=== PATIENT | male | born 1995 | race Caucasian/White ===

== ENCOUNTER 2016-12-08 14:55 | Emergency (ER) | payer SELFPAY ==
[2016-12-08 15:09] VITALS: BP 119/71
--- NOTE | 2016-12-08 17:11 | Emergency Department Report ---
Upper Extremity - HPI Chief Complaint: Extremity Injury, Upper Stated Complaint: LT ARM/CHEST PAIN Time Seen by Provider: 12/08/16 16:28 Upper Extremity: Left Shoulder Occurred When: Today Severity: mild Symptoms: Yes Pain with Movement, No Deformity, No Limited Range of Movement, No Numbness, No Weakness, No Swelling, No Bruising/Ecchymosis, No Laceration or Abrasion Other History: 21-year-old male past medical history benign heart murmur presents with complaint of left shoulder pain. Patient states that he was at work today lifting a heavy box and suddenly felt pain in his left shoulder. Patient denies any central chest pain shortness of breath palpitations shortness of breath no nausea or vomiting denies any diaphoresis. Patient is Indonesian-speaking which I speak fluently. Denies any family history of [place] in father. Denies smoking drinking drug use. is accompanied by family friends. states pain is worse with ranging his left shoulder. ED Review of Systems ROS: Stated complaint: LT ARM/CHEST PAIN Other details as noted in HPI Constitutional: denies: chills, fever Eyes: denies: eye pain, eye discharge, vision change ENT: denies: ear pain, throat pain Respiratory: denies: cough, shortness of breath, wheezing Cardiovascular: denies: chest pain, palpitations Endocrine: no symptoms reported Gastrointestinal: denies: abdominal pain, nausea, diarrhea Genitourinary: denies: urgency, dysuria Musculoskeletal: as per HPI. denies: back pain, joint swelling, arthralgia Skin: denies: rash, lesions Neurological: denies: headache, weakness, paresthesias Psychiatric: denies: anxiety, depression Hematological/Lymphatic: denies: easy bleeding, easy bruising ED Past Medical Hx - Past Medical History Previous Medical History?: Yes Additional medical history: heart murmur - Surgical History Past Surgical History?: No - Social History Smoking Status: Current Every Day Smoker Substance Use Type: None - Medications Home Medications: Home Medications Medication Instructions Recorded Confirmed Last Taken Type Ibuprofen [Motrin] 400 mg PO Q8H PRN #25 tablet 12/08/16 Unknown Rx Upper Extremity Exam - Exam General: Vital signs noted. No distress. Alert and acting appropriately. Head and Torso: No HEENT Abnormality, No Neck Tenderness, No Chest/Lungs Abnormality, No Abdominal Tenderness, No Back Tenderness Shoulder Exam: Yes Shoulder Tenderness (mild anterior left deltoid discomfort), Yes Normal Range of Motion in Shoulder (left shoulder abduction and abduction and internal and external rotation fully intact), No Clavicle Tenderness, No Shoulder Deformity, No AC Joint Tenderness Arm Exam: No Arm/Humerus Tenderness, No Arm Deformity Elbow: No Elbow Tenderness, No Normal Range of Motion in Elbow, No Elbow Deformity Forearm: No Forearm Tenderness, No Forearm Deformity, No Pain with Pronation, No Pain with Supination Wrist: Yes Normal ROM in Wrist, No Wrist Tenderness, No Wrist Deformity, No Snuffbox Tenderness, No Pain with Axial Thumb Compression Hand: Yes Normal ROM in Digit(s), No Hand Tenderness, No Hand Deformity, No Digit Tenderness, No Digit(s) Deformity, No Tendon Dysfunction CMS Exam: Yes Normal Distal Pulses (distal radial and brachial pulses fully intact both extremities), Yes Normal Capillary Refill, Yes Normal Distal Sensation, No Broken Skin Front/Back of Body, Lg (Color): 1 - Mild pain on palpation here ED Course Vital Signs 12/08/16 15:04 Temperature 98 F Pulse Rate 53 L Respiratory 18 Rate Blood Pressure 119/71 O2 Sat by Pulse 97 Oximetry ED Medical Decision Making - Medical Decision Making A/P: Left side shoulder strain, musculoskeletal pain 1-case reviewed with Dr. Reynolds 2-x-ray shows no fracture dislocation left shoulder 3-pt has EKG sinus rhythm, no cardiac risk factors, pain is reproducible with left shoulder movement unlikely to be cardiac and more likely to be musculoskeletal in origin 4-motrin when necessary for discomfort 5- will give patient primary care follow-up information Critical care attestation.: If time is entered above; I have spent that time in minutes in the direct care of this critically ill patient, excluding procedure time. ED Disposition Clinical Impression: Left shoulder strain Qualifiers: Encounter type: initial encounter Qualified Code(s): S46.912A - Strain of unspecified muscle, fascia and tendon at shoulder and upper arm level, left arm , initial encounter Disposition: DISCHARGED TO HOME OR SELFCARE Is pt being admited?: No Does the pt Need Aspirin: No Condition: Stable Instructions: Shoulder Sprain (ED) Prescriptions: Ibuprofen [Motrin] 400 mg PO Q8H PRN #25 tablet PRN Reason: Pain Referrals: [facility] [Outside] - 3-5 Days [facility] [Provider Group] - 3-5 Days [facility] [Outside] - 3-5 Days SAUMYA GLEASON MD [Staff Physician] - 3-5 Days Forms: Accompanied Note, Work/School Release Form(ED) Time of Disposition: 18:34 Print Language: MOLDOVAN
--- NOTE | 2016-12-08 18:42 | XRay Report ---
FINAL REPORT EXAM: XR SHOULDER 2 LT HISTORY: left shoulder pain TECHNIQUE: Three views of the left shoulder. PRIORS: None. FINDINGS: No fracture. No dislocation. Normal mineralization. No soft tissue abnormality. The joint spaces are maintained. IMPRESSION: Normal left shoulder.
== END 2016-12-08 18:41 | disposition home or self-care (01) ==
LOC: ED 14:55
DX: S46.912A Strain of unspecified muscle, fascia and tendon at shoulder and upper arm level, left arm, initial encounter (principal); F17.200 Nicotine dependence, unspecified, uncomplicated; X50.0XXA Overexertion from strenuous movement or load, initial encounter; X50.9XXA Other and unspecified overexertion or strenuous movements or postures, initial encounter; Y93.9 Activity, unspecified; Y92.9 Unspecified place or not applicable; Y99.9 Unspecified external cause status
CPT/HCPCS: 93005; 93010